=== PATIENT | male | born 1960 | race Caucasian/White ===

== ENCOUNTER 2018-10-25 21:46 | Emergency (ER) | payer MEDICAID ==
[2018-10-25] MEDS ORDERED: NORMAL SALINE 1000 ML 1,000 ML with POTASSIUM CHLORIDE 20 MEQ, MAGNESIUM SULFATE 8 MEQ,... IV PRN ×5 (23:09)
[2018-10-25 23:18] LABS: ABSOLUTE BASOPHILS # (AUTO) 0.1 10^3/uL (0.0-0.2); ABSOLUTE LYMPHOCYTES (AUTO) 2.2 10^3/uL (0.5-4.7); ABSOLUTE MONOCYTES (AUTO) 0.5 10^3/uL (0.1-1.4); ABSOLUTE NEUT (AUTO) 2.9 10^3/uL (1.7-8.2); BASOPHILS % (AUTO) 1.3 % (0-2); EOSINOPHILS % (AUTO) 0.8 % (0-6); HEMATOCRIT 50.4 % (37.9-51.0); HEMOGLOBIN 17.6 g/dL (13.5-17.0); LYMPHOCYTES % (AUTO) 38.9 % (13-45); MEAN CORPUSCULAR HEMOGLOBIN 31.8 pg (27.0-33.4); MEAN CORPUSCULAR HGB CONC 34.9 g/dL (32.0-36.0); MEAN CORPUSCULAR VOLUME 91 fl (80-97); MONOCYTES % (AUTO) 8.1 % (3-13); PLATELET COUNT 318 10^3/uL (150-450); RED BLOOD COUNT 5.51 10^6/uL (4.35-5.55); RED CELL DISTRIBUTION WIDTH 13.8 % (11.5-14.0); SEGMENTED NEUTROPHILS % (AUTO) 50.9 % (42-78); TOTAL CELLS COUNTED % (AUTO) 100 %; WHITE BLOOD COUNT 5.7 10^3/uL (4.0-10.5)
[2018-10-25 23:38] LABS: APPEARANCE,URINE CLEAR; BILIRUBIN,URINE NEGATIVE (NEGATIVE); COLOR,URINE YELLOW; GLUCOSE, URINE NEGATIVE (NEGATIVE); KETONES,URINE NEGATIVE (NEGATIVE); LEUKOCYTE ESTERASE,URINE NEGATIVE (NEGATIVE); NITRITE,URINE NEGATIVE (NEGATIVE); PROTEIN,URINE 100 mg/dL (NEGATIVE); URINE SPECIFIC GRAVITY 1.009; UROBILINOGEN,URINE NEGATIVE mg/dL (<2.0)
[2018-10-25 23:51] LABS: URINE AMPHETAMINES SCREEN NEGATIVE; URINE BARBITURATES SCREEN NEGATIVE; URINE BENZODIAZEPINES SCREEN NEGATIVE; URINE COCAINE SCREEN NEGATIVE; URINE MARIJUANA (THC) SCREEN UNCONFIRMED POSITIVE; URINE METHADONE SCREEN NEGATIVE; URINE PHENCYCLIDINE SCREEN NEGATIVE
[2018-10-26 00:11] LABS: ALANINE AMINOTRANSFERASE 65 U/L (21-72); ALBUMIN 5.1 g/dL (3.5-5.0); ALKALINE PHOSPHATASE 90 U/L (38-126); ANION GAP 15 (5-19); ASPARTATE AMINO TRANSFERASE 62 U/L (17-59); BILIRUBIN,DIRECT 0.1 mg/dL (0.0-0.4); BILIRUBIN,TOTAL 0.4 mg/dL (0.2-1.3); BLOOD UREA NITROGEN 7 mg/dL (7-20); CALCIUM 9.4 mg/dL (8.4-10.2); CARBON DIOXIDE 25 mmol/L (22-30); CHLORIDE 100 mmol/L (98-107); GLUCOSE 133 mg/dL (75-110); POTASSIUM 3.8 mmol/L (3.6-5.0); SODIUM 139.5 mmol/L (137-145)
[2018-10-26 00:17] LABS: ACETAMINOPHEN < 10 ug/mL (10-30); SALICYLATE < 1.0 mg/dL (2.0-20.0)
[2018-10-26 00:22] LABS: ALCOHOL 349 mg/dL (NONE DETECTED)
[2018-10-26] MEDS ORDERED: FOLIC ACID INJ 5 MG/1 ML 10 ML VIAL IV ONE (01:00)
[2018-10-26] MEDS ORDERED: THIAMINE HCL IV ONE ×2 (01:00)
[2018-10-26] MEDS ORDERED: NORMAL SALINE IV ONE ×2 (01:00)
[2018-10-26] MEDS ORDERED: THIAMINE HCL 100 MG TABLET PO ONE (01:20)
[2018-10-26] MEDS ORDERED: NORMAL SALINE 1000 ML 1,000 ML IV PRN (01:21)
--- NOTE | 2018-10-26 04:30 | ER Document Report ---
Addendum entered and electronically signed by GREG FIORE DO 10/26/18 11:56: Discharge - Discharge Clinical Impression: Suicidal ideation, Alcohol abuse Alcohol intoxication Qualifiers: Complication of substance-induced condition: uncomplicated Qualified Code(s): F10.920 - Alcohol use, unspecified with intoxication, uncomplicated Alcohol withdrawal Qualifiers: Complication of substance-induced condition: uncomplicated Qualified Code(s): F10.230 - Alcohol dependence with withdrawal, uncomplicated Condition: Stable Disposition: HOME, SELF-CARE Additional Instructions: You have been evaluated both medical and behavioral health teams have been deemed appropriate for discharge. You have been provided resources of local providers including mobile crisis contact information and detox facilities. I have prescribed you medication to treat your alcohol withdrawal. If it is not controlling your withdrawal symptoms please return to the emergency department. ACUTE ALCOHOL INTOXICATION and ALCOHOL ABUSE: Your evaluation revealed very high levels of alcohol. You can from drinking a large amount of alcohol rapidly! Further, there's the risk of falls, traffic accidents, and fights. A high portion (about 50 percent) of the serious injuries seen in hospital emergency rooms are caused by alcohol. Alcohol overdosage is usually due to an underlying emotional or psychiatric problem. You may benefit from counselling. If "binge" drinking is an ongoing problem for you, or if you drink ANY AMOUNT of alcohol EVERY day, you most likely have a tendency to alcoholism. You should avoid alcohol totally. We can refer you for treatment. Persons with alcohol problems are often also prone to other addictions -- you should discuss any use of medications or drugs with the doctor. You should be watched at home for the next several hours by someone who has not been drinking. Get extra fluids for the next 24 hours. Call the doctor if there is repeated vomiting, increasing headache, decreasing level of alertness, or any other worsening. CHRONIC ALCOHOLISM and ALCOHOL ABUSE: Your evaluation reveals evidence of chronic alcoholism, an addiction to alcohol. The tendency to alcoholism may be inherited. Chronic use of alcohol weakens muscles, causes fatty deposits in the liver, damages the stomach, makes you more prone to infections, and can cause defects in unborn children. In the long run, brain atrophy and cirrhosis of the liver result. You are also at greater risk for certain types of cancer, such as cancer of the mouth, throat, stomach, and liver. Counselling services are available to help you. In-hospital treatment programs often help. Support groups such as Alcoholics Anonymous can be very useful in beating this addiction. Your physician can make a referral for you. As alcoholics often are prone to other addictions, you should discuss your use of any other medications with the doctor. ALCOHOL WITHDRAWAL: Your symptoms are caused by alcohol withdrawal. After a period of frequent drinking, the brain and body are changed by the alcohol. When you quit or reduce your drinking, the nervous system becomes unstable. Withdrawal symptoms can start a few hours after your last drink, but sometimes don't begin until a couple of days later. Symptoms can include shakiness, sweating, insomnia, nausea, vomiting, fearfulness, hallucinations, and seizures. In addition to the acute effects of alcohol withdrawal, we often have to deal with the medical effects of alcoholism. These problems often include dehydration, stomach irritation, intestinal bleeding, low blood sugar, liver disease, and pancreas inflammation. Treatment for alcohol withdrawal includes mild sedatives, vitamins, and fluids. You need to be with someone who can help if symptoms become severe. Many patients can withdraw at home. Admission to the hospital or a detox facility may be necessary if withdrawal symptoms are severe and uncontrollable. Abstaining from alcohol is the only effective long-term treatment. If you start drinking again, you will not be able to control yourself after the first drink. Treatment programs are available. In addition, many alcoholics benefit from Alcoholics Anonymous or other support groups available through your [facility] or [employer]. AL-ANON and ALA-TEEN are support groups for friends and family members of an alcoholic. Go to the emergency room if you develop persistent vomiting, severe abdominal pain, fever, shortness of breath, hallucinations, uncontrollable tremors, or seizures. FOLLOW-UP CARE: If you have been referred to a physician for follow-up care, call the [facility] office for an appointment as you were instructed or within the next two days. If you experience worsening or a significant change in your symptoms, notify the physician immediately or return to the Emergency Department at any time for re-evaluation. Prescriptions: Chlordiazepoxide HCl [Librium 25 mg Capsule] 1 cap PO ASDIR PRN #22 capsule PRN Reason: Ondansetron HCl [Zofran 4 mg Tablet] 1 - 2 tab PO Q4H PRN #10 tablet PRN Reason: Referrals: [facility] [Outside] - Follow up in 3-5 days [facility] [Outside] - Follow up as needed Addendum entered and electronically signed by YOSVANY ROSARIO LCSWA 10/26/18 11:07: Discharge - Discharge Clinical Impression: Suicidal ideation Alcohol intoxication Qualifiers: Complication of substance-induced condition: uncomplicated Qualified Code(s): F10.920 - Alcohol use, unspecified with intoxication, uncomplicated Condition: Stable Disposition: HOME, SELF-CARE Additional Instructions: You have been evaluated both medical and behavioral health teams have been deemed appropriate for discharge. You have been provided resources of local providers including mobile crisis contact information and detox facilities. ACUTE ALCOHOL INTOXICATION and ALCOHOL ABUSE: Your evaluation revealed very high levels of alcohol. You can from drinking a large amount of alcohol rapidly! Further, there's the risk of falls, traffic accidents, and fights. A high portion (about 50 percent) of the serious injuries seen in hospital emergency rooms are caused by alcohol. Alcohol overdosage is usually due to an underlying emotional or psychiatric problem. You may benefit from counselling. If "binge" drinking is an ongoing problem for you, or if you drink ANY AMOUNT of alcohol EVERY day, you most likely have a tendency to alcoholism. You should avoid alcohol totally. We can refer you for treatment. Persons with alcohol problems are often also prone to other addictions -- you should discuss any use of medications or drugs with the doctor. You should be watched at home for the next several hours by someone who has not been drinking. Get extra fluids for the next 24 hours. Call the doctor if there is repeated vomiting, increasing headache, decreasing level of alertness, or any other worsening. CHRONIC ALCOHOLISM and ALCOHOL ABUSE: Your evaluation reveals evidence of chronic alcoholism, an addiction to alcohol. The tendency to alcoholism may be inherited. Chronic use of alcohol weakens muscles, causes fatty deposits in the liver, damages the stomach, makes you more prone to infections, and can cause defects in unborn children. In the long run, brain atrophy and cirrhosis of the liver result. You are also at greater risk for certain types of cancer, such as cancer of the mouth, throat, stomach, and liver. Counselling services are available to help you. In-hospital treatment programs often help. Support groups such as Alcoholics Anonymous can be very useful in beating this addiction. Your physician can make a referral for you. As alcoholics often are prone to other addictions, you should discuss your use of any other medications with the doctor. ALCOHOL WITHDRAWAL: Your symptoms are caused by alcohol withdrawal. After a period of frequent drinking, the brain and body are changed by the alcohol. When you quit or reduce your drinking, the nervous system becomes unstable. Withdrawal symptoms can start a few hours after your last drink, but sometimes don't begin until a couple of days later. Symptoms can include shakiness, sweating, insomnia, nausea, vomiting, fearfulness, hallucinations, and seizures. In addition to the acute effects of alcohol withdrawal, we often have to deal with the medical effects of alcoholism. These problems often include dehydration, stomach irritation, intestinal bleeding, low blood sugar, liver disease, and pancreas inflammation. Treatment for alcohol withdrawal includes mild sedatives, vitamins, and fluids. You need to be with someone who can help if symptoms become severe. Many patients can withdraw at home. Admission to the hospital or a detox facility may be necessary if withdrawal symptoms are severe and uncontrollable. Abstaining from alcohol is the only effective long-term treatment. If you start drinking again, you will not be able to control yourself after the first drink. Treatment programs are available. In addition, many alcoholics benefit from Alcoholics Anonymous or other support groups available through your [facility] or [employer]. AL-ANON and ALA-TEEN are support groups for friends and family members of an alcoholic. Go to the emergency room if you develop persistent vomiting, severe abdominal pain, fever, shortness of breath, hallucinations, uncontrollable tremors, or seizures. FOLLOW-UP CARE: If you have been referred to a physician for follow-up care, call the [facility] office for an appointment as you were instructed or within the next two days. If you experience worsening or a significant change in your symptoms, notify the physician immediately or return to the Emergency Department at any time for re-evaluation. Referrals: [facility] [Outside] - Follow up as needed [facility] [Outside] - Follow up in 3-5 days Original Note: ED General - General Chief Complaint: ETOH Abuse Stated Complaint: BLOOD PRESSURE PROBLEM Time Seen by Provider: 10/25/18 22:51 - HPI Notes: Patient presents to the emergency department for evaluation. History is gathered from the patient and his elderly mother. Evidently the patient has bee n binge drinking for the last several days. He checked himself into a hotel is been drinking alcohol. His sister became worried about him. She picked him up. At that time he did make suicidal thoughts be known. I do not have any details about this. The patient will admit this to me. He did tell his mother that he was depressed because his ex- was getting remarried. He will not elaborate at any time in regards to this either. He admits to drinking heavily over the last several days, states he usually drinks once or twice a week. Denies any homicidal ideation. No visual or auditory hallucination. - Related Data Allergies/Adverse Reactions: No Known Allergies Allergy (Verified 10/25/18 22:02) Past Medical History - General Information source: Patient, Parent - Social History Smoking Status: Current Every Day Smoker Frequency of alcohol use: Heavy Drug Abuse: None Family History: Reviewed & Not Pertinent Patient has suicidal ideation: No Patient has homicidal ideation: No - Past Medical History Cardiac Medical History: Reports: Hx Hypertension Endocrine Medical History: Reports: Hx Diabetes Mellitus Type 2 Renal/ Medical History: Denies: Hx Peritoneal Dialysis Past Surgical History: Reports: Hx Cardiac Surgery - CABG Review of Systems - Review of Systems -: Yes ROS unobtainable due to patient's medical condition - Patient currently intoxicated, not being forthcoming with history Physical Exam - Vital signs Vitals: Temp Pulse Resp BP Pulse Ox 98 F 87 16 159/103 H 97 10/25/18 22:00 10/25/18 22:00 10/25/18 22:00 10/25/18 22:00 10/25/18 22:00 - Notes Notes: Mildly disheveled, smells of alcohol. No acute distress. Vital signs reviewed, please refer to chart. Patient is normocephalic, atraumatic. Pupils equal round, reactive to light. Neck is supple without meningismus. Heart is regular rate and rhythm. Lungs are clear to auscultation bilaterally. Abdomen is sof t, nontender, normoactive bowel sounds throughout. Extremities without cyanosis, clubbing, edema. Peripheral pulses are equal. Skin is warm and dry. Patient is awake, alert, neurological exam is nonfocal. Patient with diminished eye contact and mildly depressed affect. Course - Re-evaluation Re-evalutation: 10/26/18 04:27 Patient presents emergency department for evaluation. He is not being forthcoming with me, but family states that he is in fact suicidal. IVC orders placed. Patient is found to be significantly intoxicated. The remainder of his laboratory investigations were unremarkable. Once patient is more sober, he will be medically cleared for psychiatric evaluation. Continue to monitor. 10/26/18 04:30 10/26/18 05:50 Patient admits that he talked about suicidal ideation with family last night. He states he is not suicidal at this time. He does have a history of alcohol abuse. At this point I do not feel comfortable discharging without psychiatric evaluation. He is medically cleared at this time. Await psychiatric evaluation. - Vital Signs Vital signs: Temp Pulse Resp BP Pulse Ox 98 F 87 16 159/103 H 97 10/25/18 22:00 10/25/18 22:00 10/25/18 22:00 10/25/18 22:00 10/25/18 22:00 - Laboratory Result Diagrams: 10/25/18 22:40 10/25/18 23:40 Laboratory results interpreted by me: 10/25/18 10/25/18 10/25/18 22:40 23:19 23:40 Hgb 17.6 H Glucose 133 H AST 62 H Albumin 5.1 H Urine Protein 100 H Urine Blood SMALL H Salicylates < 1.0 L Acetaminophen < 10 L Serum Alcohol 349 H* - EKG Interpretation by Me Additional EKG results interpreted by me: 10/26/18 05:51 Sinus mechanism with a rate of 72 bpm. Incomplete right bundle branch block. Nonspecific ST changes, no acute changes concerning for acute infarction. No old studies for comparison. Discharge - Discharge Clinical Impression: Suicidal ideation, Alcohol intoxication Condition: Stable
[2018-10-26] MEDS ORDERED: KETOROLAC TROMETHAMINE INJ/PF 30 MG/1 ML SDV IV ONE (05:28)
[2018-10-26] MEDS ORDERED: ONDANSETRON HCL INJ/PF 4 MG/2 ML SDV IV ONE (05:29)
[2018-10-26] MEDS ORDERED: LORAZEPAM INJ 2 MG/1 ML VIAL IV ONE ×2 (05:53→11:14)
--- NOTE | 2018-10-26 08:06 | EKG REPORT ---
SEVERITY:- ABNORMAL ECG - SINUS RHYTHM PROBABLE LEFT ATRIAL ABNORMALITY INCOMPLETE RIGHT BUNDLE BRANCH BLOCK NONSPECIFIC T ABNORMALITIES, LATERAL LEADS BORDERLINE ST ELEVATION : Confirmed by: Vernon Dickey MD 26-Oct-2018 08:05:03
[2018-10-26] MEDS ORDERED: LORAZEPAM 1 MG TABLET PO ONE (09:20)
[2018-10-26 12:20] VITALS: BP 150/89
--- NOTE | 2018-10-28 06:16 | ER Document Report ---
Entered by BENJI GALVEZ SCRIBE 10/26/18 1055 Acting as scribe for:GREG FIORE DO ED General - General Chief Complaint: ETOH Abuse Stated Complaint: BLOOD PRESSURE PROBLEM Time Seen by Provider: 10/25/18 22:51 Primary Care Provider: [facility] [Outside] - Follow up in 3-5 days [facility] [Outside] - Follow up as needed Mode of Arrival: Ambulatory Information source: Patient Notes: Patient is a 58 year old male with a history of alcohol abuse presents to the emergency department complaining of alcohol withdrawal. Patient states he last consumed alcohol around 0300 this morning. He states "Im in a bad way... I don't want a drink, I need a drink". Patient states he has been drinking heavy for "a while" and reports drinking approximately .5 a pint daily. He further states "I have been drunk all week". He mentions he would like to stop consuming alcohol and further states "I do not want to ". Patient also complains of diaphoresis, a headache, nausea, decreased appetite, tingling sensations in fingertips and tremors. He denies vomiting, hallucinations, a history of alcohol seizures, medications for alcohol abuse or psychiatric help. - Related Data Allergies/Adverse Reactions: No Known Allergies Allergy (Verified 10/26/18 07:39) Past Medical History - General Information source: Patient - Social History Smoking Status: Current Every Day Smoker Frequency of alcohol use: Heavy Drug Abuse: None Family History: Reviewed & Not Pertinent Patient has suicidal ideation: No Patient has homicidal ideation: No - Past Medical History Cardiac Medical History: Reports: Hx Hypertension Endocrine Medical History: Reports: Hx Diabetes Mellitus Type 2 Past Surgical History: Reports: Hx Cardiac Surgery - CABG Review of Systems - Review of Systems Constitutional: No symptoms reported EENT: No symptoms reported Cardiovascular: No symptoms reported Respiratory: No symptoms reported Gastrointestinal: See HPI, Nausea Genitourinary: No symptoms reported Physical Exam - Vital signs Vitals: Temp Pulse Resp BP Pulse Ox 98 F 87 16 159/103 H 97 10/25/18 22:00 10/25/18 22:00 10/25/18 22:00 10/25/18 22:00 10/25/18 22:00 - Notes Notes: GENERAL: Alert, appears mildly anxious, diaphoretic, no active vomiting, interacts well. No acute distress. HEAD: Normocephalic, atraumatic. EYES: Pupils equal, round, and reactive to light. Extraocular movements intact. ENT: Oral mucosa moist, tongue midline. NECK: Full range of motion. Supple. Trachea midline. LUNGS: Diffuse expiratory wheezing. No respiratory distress. HEART: Regular rate and rhythm. No murmurs, gallops, or rubs. ABDOMEN: Soft, non-tender. Non-distended. Bowel sounds present in all 4 quadrants. No guarding, rigidity, or rebound. EXTREMITIES: Moves all 4 extremities spontaneously. Mild resting tremor. NEUROLOGICAL: Alert and oriented x3. Normal speech. PSYCH: Appears mildly anxious. SKIN: Warm, diaphoretic, normal turgor. No rashes or lesions noted. Course - Vital Signs Vital signs: Temp Pulse Resp BP Pulse Ox 98.4 F 103 H 20 127/91 H 96 10/26/18 09:17 10/26/18 09:17 10/26/18 09:17 10/26/18 09:17 10/26/18 09:17 - Laboratory Result Diagrams: 10/25/18 22:40 10/25/18 23:40 Laboratory results interpreted by me: 10/25/18 10/25/18 10/25/18 22:40 23:19 23:40 Hgb 17.6 H Glucose 133 H AST 62 H Albumin 5.1 H Urine Protein 100 H Urine Blood SMALL H Salicylates < 1.0 L Acetaminophen < 10 L Serum Alcohol 349 H* Discharge - Discharge Clinical Impression: Suicidal ideation, Alcohol intoxication Disposition: HOME, SELF-CARE I personally performed the services described in the documentation, reviewed and edited the documentation which was dictated to the scribe in my presence, and it accurately records my words and actions.
== END 2018-10-26 12:30 | disposition home or self-care (01) ==
LOC: ER 21:46
DX: F10.230 Alcohol dependence with withdrawal, uncomplicated (principal); F10.220 Alcohol dependence with intoxication, uncomplicated; R45.851 Suicidal ideations; F17.200 Nicotine dependence, unspecified, uncomplicated; I10 Essential (primary) hypertension; E11.9 Type 2 diabetes mellitus without complications; I45.10 Unspecified right bundle-branch block; Z95.1 Presence of aortocoronary bypass graft
CPT/HCPCS: 93005; 36415; 80307 ×4; 85025; 80053; 81001; 93010; J3490 ×2; J1885; J2060; J2405; J7030

== ENCOUNTER 2019-04-20 09:24 | Emergency (ER) | payer MEDICAID, OTHER ==
[2019-04-20 09:29] VITALS: BP 174/97
[2019-04-20] MEDS ORDERED: LIDOCAINE 2% VISCOUS SOLN 20 ML UDCUP PO ONE (09:39)
--- NOTE | 2019-04-20 09:46 | ER Document Report ---
ED ENT - General Chief Complaint: Sore Throat Stated Complaint: COUGH, SORE THROAT Time Seen by Provider: 04/20/19 09:33 TRAVEL OUTSIDE OF THE [place] IN LAST 30 DAYS: No - HPI Notes: 58-year-old male to the emergency department with complaints of sore throat that got significantly worse since last night. He states about 3 days ago he noticed that he had a little bit of slight cough with production of clear phlegm. He states he did not really pay attention to it because he really did not feel bad. He states however yesterday he started to notice that his throat became sore and scratchy. He said that he woke up in the middle the night and felt like his sore throat had gotten worse and had a lot of pain with swallowing. He states that he has been able to tolerate fluids without any difficulty. He has not had any fevers, chills, chest pain, shortness of breath, ear pain, headache, nasal congestion, sick contacts, nausea, vomiting, diarrhea. Patient is a smoker. - Related Data Allergies/Adverse Reactions: No Known Allergies Allergy (Verified 04/20/19 09:25) Past Medical History - General Information source: Patient - Social History Smoking Status: Current Every Day Smoker Frequency of alcohol use: Occasional Drug Abuse: None Family History: Reviewed & Not Pertinent Patient has suicidal ideation: No Patient has homicidal ideation: No - Past Medical History Cardiac Medical History: Reports: Hx Hypertension Endocrine Medical History: Reports: Hx Diabetes Mellitus Type 2 - "borderline" Renal/ Medical History: Denies: Hx Peritoneal Dialysis Past Surgical History: Reports: Hx Cardiac Surgery - CABG Review of Systems - Review of Systems Constitutional: denies: Chills, Fever EENT: See HPI, Throat pain, Other Cardiovascular: denies: Chest pain, Palpitations, Heart racing, Dyspnea, Syncope, Dizziness, Lightheaded Respiratory: Cough. denies: Short of breath Gastrointestinal: denies: Abdominal pain, Diarrhea, Nausea, Vomiting Musculoskeletal: No symptoms reported Skin: No symptoms reported Hematologic/Lymphatic: No symptoms reported Neurological/Psychological: No symptoms reported -: Yes All other systems reviewed and negative Physical Exam - Vital signs Vitals: Temp Pulse Resp BP Pulse Ox 97.9 F 75 20 174/97 H 97 04/20/19 09:28 04/20/19 09:28 04/20/19 09:28 04/20/19 09:28 04/20/19 09:28 Interpretation: Hypertensive Notes: Patient states he has not taken his high blood pressure medicine today - General General appearance: Appears well, Alert In distress: None - HEENT Head: Normocephalic, Atraumatic Eyes: Normal Pupils: PERRL Ears: Normal External canal: Normal Tympanic membrane: Normal Sinus: Normal Nasal: Normal Mouth/Lips: Normal. No: Angioedema Mucous membranes: Normal Pharynx: Erythema - There is mild erythema to the posterior oropharynx without exudate. Tonsillar is are not swollen. Patient is tolerating oral secretions without difficulty. He has no hot potato voice. He does not have ludwigs angina. Airway is grossly patent.. No: Exudate, Peritonsillar abscess, Post n niko drainage, Retropharyngeal abscess, Tonsillar hypertrophy, Uvular edema, Potential airway comprom. Neck: Normal, Supple. No: Lymphadenopathy, Meningismus - Respiratory Respiratory status: No respiratory distress Chest status: Nontender Breath sounds: Normal Chest palpation: Normal - Cardiovascular Rhythm: Regular Heart sounds: Normal auscultation Murmur: No - Neurological Neuro grossly intact: Yes Cognition: Normal Orientation: AAOx4 [place] Coma Scale Eye Opening: Spontaneous Joi Coma Scale Verbal: Oriented [place] Coma Scale Motor: Obeys Commands [place] Coma Scale Total: 15 Speech: Normal Motor strength normal: LUE, RUE, LLE, RLE Sensory: Normal - Psychological Associated symptoms: Normal affect, Normal mood - Skin Skin Temperature: Warm Skin Moisture: Dry Skin Color: Normal Course - Re-evaluation Re-evalutation: Impression: Viral pharyngitis, hypertension. Rapid strep was already performed prior to seeing patient. Will await results however likely this is viral. We will give patient viscous lidocaine to aid in his discomfort. Patient agrees with the plan. 04/20/19 10:05 Noted negative rapid strep. Will discharge patient home with symptomatic relief to include Tylenol and Chloraseptic [place]. Encouraged to eat soft foods and cool liquids. To push fluids and to return if any worsening symptoms such as drooling, inability to swallow, or any other complaints. Patient agrees with the plan. - Vital Signs Vital signs: Temp Pulse Resp BP Pulse Ox 97.9 F 75 20 174/97 H 97 04/20/19 09:28 04/20/19 09:28 04/20/19 09:28 04/20/19 09:28 04/20/19 09:28 Discharge - Discharge Clinical Impression: Sore throat (viral) Pharyngitis Qualifiers: Pharyngitis/tonsillitis etiology: unspecified etiology Qualified Code(s): J02.9 - Acute pharyngitis, unspecified Hypertension Qualifiers: Hypertension type: essential hypertension Qualified Code(s): I10 - Essential (primary) hypertension Condition: Stable Disposition: HOME, SELF-CARE Instructions: Sore Throat ([facility]), Viral Syndrome ([facility]) Additional Instructions: PUSH FLUIDS. TAKE MEDICINES PRESCRIBED. FOLLOW UP WITH YOUR PRIMARY CARE PHYSICIAN IN THE NEXT WEEK. REST. Prescriptions: Phenol/Glycerin [Chloraseptic Max [place]] 2 spray MM PRN PRN #1 bottle PRN Reason: Acetaminophen [Tylenol Extra Strength 500 mg Tablet] 1 tab PO Q6H PRN #20 tab PRN Reason: Referrals: [facility] [Provider Group] - Follow up in 1 week
== END 2019-04-20 10:26 | disposition home or self-care (01) ==
LOC: ER 09:24
DX: J02.9 Acute pharyngitis, unspecified (principal); R05 Cough; F17.200 Nicotine dependence, unspecified, uncomplicated; I10 Essential (primary) hypertension; E11.9 Type 2 diabetes mellitus without complications; Z95.1 Presence of aortocoronary bypass graft
CPT/HCPCS: 99282; 87070; 87880; J3490

== ENCOUNTER 2019-04-23 16:47 | Emergency (ER) | payer MEDICAID ==
[2019-04-23 17:00] VITALS: BP 169/94
--- NOTE | 2019-04-23 17:28 | ER Document Report ---
ED Medical Screen (RME) - General Chief Complaint: Sore Throat Stated Complaint: SORE THROAT Time Seen by Provider: 04/23/19 17:14 Mode of Arrival: Ambulatory Information source: Patient Notes: Patient presents complaining of sore throat for the past week with pain to the anterior neck area. Patient was here last week and was seen for this complaint and had negative strep and throat culture performed at that time. I have greeted and performed a rapid initial assessment of this patient. A comprehensive ED assessment and evaluation of the patient, analysis of test results and completion of the medical decision making process will be conducted by additional ED providers. TRAVEL OUTSIDE OF THE [place] IN LAST 30 DAYS: No - Related Data Allergies/Adverse Reactions: No Known Allergies Allergy (Verified 04/23/19 16:47) Past Medical History - Past Medical History Cardiac Medical History: Reports: Hx Hypertension Endocrine Medical History: Reports: Hx Diabetes Mellitus Type 2 - "borderline" Renal/ Medical History: Denies: Hx Peritoneal Dialysis Past Surgical History: Reports: Hx Cardiac Surgery - CABG Physical Exam - Vital signs Vitals: Temp Pulse Resp BP Pulse Ox 97.9 F 78 18 169/94 H 98 04/23/19 16:58 04/23/19 16:58 04/23/19 16:58 04/23/19 16:58 04/23/19 16:58 - General Notes: Anterior neck tenderness, posterior pharynx mildly erythematous, no potential airway compromise Course - Vital Signs Vital signs: Temp Pulse Resp BP Pulse Ox 97.9 F 78 18 169/94 H 98 04/23/19 16:58 04/23/19 16:58 04/23/19 16:58 04/23/19 16:58 04/23/19 16:58
[2019-04-23 19:17] LABS: FREE T3 4.18 pg/mL (2.77-5.27); FREE T4 (FREE THYROXINE) 0.99 ng/dL (0.78-2.19)
[2019-04-23 19:31] LABS: THYROID STIMULATING HORMONE 3.45 uIU/mL (0.47-4.68)
--- NOTE | 2019-04-23 19:34 | RADIOLOGY REPORT (SQ) ---
EXAM DESCRIPTION: U/S THYROID/SFT TISS HD NECK COMPLETED DATE/TIME: 04/23/2019 7:15 pm REASON FOR STUDY: anterior neck pain COMPARISON: None. TECHNIQUE: Dynamic and static peraza-scale images acquired of the thyroid gland. Selected additional c olor/power Doppler images recorded. All images stored to PACS. LIMITATIONS: None. FINDINGS: RIGHT LOBE: Normal size, 4.9 x 1 x 1.1 cm. Homogeneous echotexture. No cystic or solid m asses. LEFT LOBE: Normal size, 4.7 x 1.1 x 1.6 cm. Homogeneous echotexture. No cystic or solid masses. ISTHMUS: Normal size, 3 mm. Homogeneous echotexture. No cystic or solid masses. OTHER: There is a 10 mm lymph node in the anterolateral right side of the neck. IMPRESSION: Lymph node. Normal thyroid gland. TECHNICAL DOCUMENTATION: JOB ID: [id number] [employer]- All Rights Reserved Reading location - IP/workstation name: [email or web address]
[2019-04-23 23:24] LABS: ABSOLUTE BASOPHILS # (AUTO) 0.1 10^3/uL (0.0-0.2); ABSOLUTE EOSINOPHILS # (AUTO) 0.2 10^3/uL (0.0-0.6); ABSOLUTE LYMPHOCYTES (AUTO) 1.5 10^3/uL (0.5-4.7); ABSOLUTE MONOCYTES (AUTO) 0.9 10^3/uL (0.1-1.4); ABSOLUTE NEUT (AUTO) 4.9 10^3/uL (1.7-8.2); BASOPHILS % (AUTO) 1.2 % (0-2); EOSINOPHILS % (AUTO) 2.8 % (0-6); HEMATOCRIT 49.2 % (37.9-51.0); HEMOGLOBIN 16.9 g/dL (13.5-17.0); LYMPHOCYTES % (AUTO) 19.4 % (13-45); MEAN CORPUSCULAR HEMOGLOBIN 31.8 pg (27.0-33.4); MEAN CORPUSCULAR HGB CONC 34.4 g/dL (32.0-36.0); MEAN CORPUSCULAR VOLUME 93 fl (80-97); MONOCYTES % (AUTO) 11.4 % (3-13); PLATELET COUNT 276 10^3/uL (150-450); RED BLOOD COUNT 5.32 10^6/uL (4.35-5.55); RED CELL DISTRIBUTION WIDTH 13.1 % (11.5-14.0); SEGMENTED NEUTROPHILS % (AUTO) 65.2 % (42-78); TOTAL CELLS COUNTED % (AUTO) 100 %; WHITE BLOOD COUNT 7.5 10^3/uL (4.0-10.5)
[2019-04-23] MEDS ORDERED: DEXAMETHASONE SOD PHOS INJ 10 MG/1 ML VIAL IM ONE (23:39)
--- NOTE | 2019-04-24 00:16 | ER Document Report ---
ED ENT - General Chief Complaint: Neck Pain >24hrs old Stated Complaint: SORE THROAT Time Seen by Provider: 04/23/19 17:14 Mode of Arrival: Ambulatory Notes: Patient is a 58-year-old male that comes to the emergency department for chief complaint of pain in his throat. He states every time he swallows he gets a lot of pain. He can point to the area on the right side which has some swelling and is worse with the pain as well. He denies inability swallow, shortness of breath, fever/chills, abdominal pain, vomiting, or any other symptoms at this time. He was seen previously and had a negative strep test, given Chloraseptic [place] and Tylenol. TRAVEL OUTSIDE OF THE [place] IN LAST 30 DAYS: No - Related Data Allergies/Adverse Reactions: No Known Allergies Allergy (Verified 04/23/19 16:47) Past Medical History - General Information source: Patient - Social History Smoking Status: Current Every Day Smoker Smoking Education Provided: Yes - <3 min Frequency of alcohol use: None Drug Abuse: None Lives with: Family Family History: Reviewed & Not Pertinent Patient has suicidal ideation: No Patient has homicidal ideation: No - Past Medical History Cardiac Medical History: Reports: Hx Hypertension Endocrine Medical History: Reports: Hx Diabetes Mellitus Type 2 - "borderline" Renal/ Medical History: Denies: Hx Peritoneal Dialysis Past Surgical History: Reports: Hx Cardiac Surgery - CABG - Immunizations Immunizations up to date: Yes Hx Diphtheria, Pertussis, Tetanus Vaccination: Yes Review of Systems - Review of Systems Constitutional: No symptoms reported EENT: See HPI Cardiovascular: No symptoms reported Respiratory: No symptoms reported Gastrointestinal: No symptoms reported Genitourinary: No symptoms reported Male Genitourinary: No symptoms reported Musculoskeletal: No symptoms reported Skin: No symptoms reported Hematologic/Lymphatic: No symptoms reported Neurological/Psychological: No symptoms reported Physical Exam - Vital signs Vitals: Temp Pulse Resp BP Pulse Ox 97.9 F 78 18 169/94 H 98 04/23/19 16:58 04/23/19 16:58 04/23/19 16:58 04/23/19 16:58 04/23/19 16:58 - Notes Notes: GENERAL: Alert, interacts well. No acute distress. HEAD: Normocephalic, atraumatic. EYES: Pupils equal, round, and reactive to light. Extraocular movements intact. ENT: Oral mucosa moist, tongue midline. Oropharynx unremarkable. Airway patent. Nares patent, no nasal septal hematoma, TM's intact. NECK: Full range of motion. Supple. Trachea midline. There is some right-sided anterior cervical adenopathy. No induration or fluctuance. LUNGS: Few scattered wheezes, occasional cough, coarse breath sounds. No tachypnea or labored breathing. HEART: Regular rate and rhythm. No murmur ABDOMEN: Soft, non-tender. Non-distended. Bowel sounds present in all 4 quadrants. GENITOURINARY: Deferred EXTREMITIES: Moves all 4 extremities spontaneously. No edema, normal radial and dorsalis pedis pulses bilaterally. No cyanosis. BACK: no cervical, thoracic, lumbar midline tenderness. No saddle anesthesia, normal distal neurovascular exam. Moves all extremities in full range of motion. NEUROLOGICAL: Alert and oriented x3. Normal speech. Cranial nerves II through XII grossly intact. PSYCH: Normal affect, normal mood. SKIN: Warm, dry, normal turgor. No rashes or lesions noted. Course - Re-evaluation Re-evalutation: Patient does have some pain with swallowing, he points to the right side of the neck, and this area that does appear to be adenopathy without submandibular swelling or abscess. Oropharyngeal exam is unremarkable. He is in no distress. Airway patent. No respiratory distress. He does have some scattered wheezes but he declines evaluation for this and states it is his baseline. Vital signs show hypertension but otherwise unremarkable. CBC unremarkable, thyroid studies, strep, mono, and thyroid ultrasound all reviewed from triage and show lymph node swelling but no other abnormalities. Discussed options with patient, he requests the dexamethasone after we discussed different options, throat culture pending. Discussed return precautions and follow-up. Patient states understanding and agreement. Stable at time of discharge. - Vital Signs Vital signs: Temp Pulse Resp BP Pulse Ox 97.9 F 78 18 169/94 H 98 04/23/19 16:58 04/23/19 16:58 04/23/19 16:58 04/23/19 16:58 04/23/19 16:58 - Laboratory Result Diagrams: 04/23/19 18:21 Discharge - Discharge Clinical Impression: Sore throat, Anterior cervical adenopathy Condition: Stable Disposition: HOME, SELF-CARE Additional Instructions: Your blood tests are normal. Your ultrasound shows an enlarged lymph node but no concerning findings otherwise. You have been treated for this. The dexamethasone you were given should help with your symptoms but might elevate your blood sugars over the next couple of days. This should resolve with time. Follow-up with primary care. Return if you worsen including difficulty swallowing, fever, or any other concerning or worsening symptoms.
== END 2019-04-24 00:30 | disposition home or self-care (01) ==
LOC: ER 16:47
DX: J02.9 Acute pharyngitis, unspecified (principal); R59.0 Localized enlarged lymph nodes; M54.2 Cervicalgia; F17.200 Nicotine dependence, unspecified, uncomplicated; I10 Essential (primary) hypertension; E11.9 Type 2 diabetes mellitus without complications; Z95.1 Presence of aortocoronary bypass graft
CPT/HCPCS: 36415; 87070; 84439; 87880; 84443; 85025; 86308; 84481; 76536; J1100

== ENCOUNTER 2020-07-19 09:33 | Emergency (ER) | payer MEDICAID ==
--- NOTE | 2020-07-19 10:29 | ER Document Report ---
ED General - General Chief Complaint: ETOH Abuse Stated Complaint: WEAKNESS/POSSIBLE ETOH Time Seen by Provider: 07/19/20 10:08 Notes: HPI: Patient is a 60-year-old male with a history of admitted alcohol abuse and medication noncompliance with a history of a CABG in the past presents today after he called his mother to call EMS secondary to alcohol intoxication and desiring help and assistance. Patient denies any history of withdrawal sei zures. Patient states he is intermittently taking a blood thinner for his CABG surgery. He states he did hit his right forehead yesterday. He states he did not vomit and did not lose consciousness. He denies weakness or numbness. Patient denies a history of withdrawal seizures. He denies pain to any location. ROS: See HPI All other review of systems reviewed and otherwise negative Reviewed vital signs and nursing note as charted by RN. PHYSICAL EXAM: CONSTITUTIONAL: Alert and polite but obviously intoxicated HEAD: Normocephalic; right forehead abrasion EYES: PERRL; no nystagmus, sclerae non-icteric ENT: Normal nose; no rhinorrhea; moist mucous membranes; pharynx without lesions noted NECK: Supple without meningismus; non-tender; no cervical lymphadenopathy, no masses CARD: Regular rate and rhythm; no murmurs; symmetric distal pulses RESP: Normal chest excursion without splinting or tachypnea; breath sounds clear and equal bilaterally; no wheezes, no rhonchi, no rales ABD/GI: Normal bowel sounds; non-distended; soft, non-tender; no palpable organomegaly or masses BACK: The back appears normal and is non-tender to palpation EXT: Normal ROM in all joints; non-tender to palpation; no edema SKIN: No acute lesions noted NEURO: CN 2-12 intact; 5/5 bilateral upper and lower extremity strength with sensation intact to light touch PSYCH: The patient's mood and manner are appropriate. Grooming and personal hygiene are appropriate. TRAVEL OUTSIDE OF THE [place] IN LAST 30 DAYS: No - Related Data Allergies/Adverse Reactions: No Known Allergies Allergy (Verified 04/23/19 16:47) Home Medications: non compliant Past Medical History - Social History Smoking Status: Current Every Day Smoker Chew tobacco use (# tins/day): No Frequency of alcohol use: Heavy Drug Abuse: None Family History: Reviewed & Not Pertinent Patient has homicidal ideation: No - Past Medical History Cardiac Medical History: Reports: Hx Hypertension Endocrine Medical History: Reports: Hx Diabetes Mellitus Type 2 - "borderline" Renal/ Medical History: Denies: Hx Peritoneal Dialysis Past Surgical History: Reports: Hx Cardiac Surgery - CABG - Immunizations Immunizations up to date: Yes Hx Diphtheria, Pertussis, Tetanus Vaccination: Yes Physical Exam - Vital signs Vitals: Resp Pulse Ox 20 98 07/19/20 09:59 07/19/20 09:59 Course - Re-evaluation Re-evalutation: 07/19/20 10:29 Given the above history and physical examination, I will obtain basic labs, attempt to obtain a CT scan of the head, and have case management/behavioral health talk to the patient about possible options. Patient is stating that he would like to perform outpatient therapy. He does not want to be transferred to an inpatient location. 07/19/20 10:35 EKG shows heart rate of 63, normal sinus rhythm, right bundle branch block, inverted T waves in leads I, 2, aVL, V4 through V6. Previous EKG from October 2018 shows a similar EKG with upright T waves in V4 07/19/20 11:19 Imaging and blood alcohol level as recorded. - Vital Signs Vital signs: Temp Pulse Resp BP Pulse Ox 98.9 F 83 14 126/80 H 97 07/19/20 15:14 07/19/20 15:15 07/19/20 15:15 07/19/20 15:15 07/19/20 15:15 - Laboratory Result Diagrams: 07/19/20 09:58 07/19/20 09:58 Laboratory results interpreted by me: 07/19/20 09:58 Sodium 148.2 H Serum Alcohol 391 H* Discharge - Discharge Clinical Impression: Alcohol intoxication Qualifiers: Complication of substance-induced condition: with unspecified complication Qualified Code(s): F10.929 - Alcohol use, unspecified with intoxication, unspecified Condition: Fair Disposition: PSYCH HOSP/UNIT
[2020-07-19 10:30] LABS: ABSOLUTE MONOCYTES (AUTO) 0.4 10^3/uL (0.1-1.4); ABSOLUTE NEUT (AUTO) 2.2 10^3/uL (1.7-8.2); BASOPHILS % (AUTO) 0.9 % (0-2); EOSINOPHILS % (AUTO) 0.6 % (0-6); HEMATOCRIT 48.3 % (37.9-51.0); HEMOGLOBIN 16.3 g/dL (13.5-17.0); MEAN CORPUSCULAR HEMOGLOBIN 31.5 pg (27.0-33.4); MEAN CORPUSCULAR HGB CONC 33.7 g/dL (32.0-36.0); MEAN CORPUSCULAR VOLUME 94 fl (80-97); MONOCYTES % (AUTO) 7.7 % (3-13); PLATELET COUNT 252 10^3/uL (150-450); RED BLOOD COUNT 5.17 10^6/uL (4.35-5.55); RED CELL DISTRIBUTION WIDTH 13.6 % (11.5-14.0); SEGMENTED NEUTROPHILS % (AUTO) 46.8 % (42-78); TOTAL CELLS COUNTED % (AUTO) 100 %; WHITE BLOOD COUNT 4.6 10^3/uL (4.0-10.5)
[2020-07-19 10:52] LABS: ALBUMIN 3.9 g/dL (3.5-5.0); ALKALINE PHOSPHATASE 92 U/L (38-126); ANION GAP 11 (5-19); ASPARTATE AMINO TRANSFERASE 59 U/L (17-59); BILIRUBIN,DIRECT 0.2 mg/dL (0.0-0.4); BILIRUBIN,TOTAL 0.5 mg/dL (0.2-1.3); BLOOD UREA NITROGEN 13 mg/dL (7-20); CALCIUM 8.5 mg/dL (8.4-10.2); CARBON DIOXIDE 30 mmol/L (22-30); CHLORIDE 107 mmol/L (98-107); GLUCOSE 101 mg/dL (75-110); POTASSIUM 4.1 mmol/L (3.6-5.0); TOTAL PROTEIN 6.9 g/dL (6.3-8.2)
--- NOTE | 2020-07-19 10:57 | RADIOLOGY REPORT (SQ) ---
EXAM DESCRIPTION: CT HEAD WITHOUT IMAGES COMPLETED DATE/TIME: 07/19/2020 10:44 am REASON FOR STUDY: 19; closed head injury COMPARISON: 2006. TECHNIQUE: Axial images acquired through the brain without intravenous contrast. Images reviewed wi th bone, brain and subdural windows. Additional sagittal and coronal reconstructions were generated. Images stored on PACS. All CT scanners at this facility use dose modulation, iterative reconstruction, and/or weight based d osing when appropriate to reduce radiation dose to as low as reasonably achievable (ALARA). [facility]: Dose Right [facility]: CareDose [facility]: Dose Right [facility]: Teradose 4D [facility]: Smart [employer] RADIATION DOSE: CT Rad equipment meets quality standard of care and radiation dose reduction techniq ues were employed. CTDIvol: 53.2 mGy. DLP: 1044 mGy-cm. mGy. LIMITATIONS: None. FINDINGS: VENTRICLES: Prominent. CEREBRUM: No masses. No hemorrhage. No midline shift. Areas of low density in the white matter mos t likely due to chronic micro-vascular ischemic change. No evidence for acute infarction. CEREBELLUM: No masses. No hemorrhage. No alteration of density. No evidence for acute infarction. EXTRAAXIAL SPACES: Mild age-related involutional change. No fluid collections. No masses. ORBITS AND GLOBE: No intra- or extraconal masses. Normal contour of globe without masses. CALVARIUM: No fracture. PARANASAL SINUSES: No fluid or mucosal thickening. SOFT TISSUES: No mass or hematoma. OTHER: No other significant finding. IMPRESSION: No acute findings. EVIDENCE OF ACUTE STROKE: NO. TECHNICAL DOCUMENTATION: JOB ID: [id number] Quality ID # [id number]: Final reports with documentation of one or more dose reduction techniques (e.g., Au tomated exposure control, adjustment of the mA and/or kV according to patient size, use of iterative reconstruction technique) 2010 [employer]- All Rights Reserved Reading location - IP/workstation name: [email or web address]
[2020-07-19] MEDS ORDERED: NORMAL SALINE 1000 ML 1,000 ML IV ONE (11:14)
[2020-07-19 11:18] LABS: ALCOHOL 391 mg/dL (NONE DETECTED)
[2020-07-19] MEDS ORDERED: LORAZEPAM 1 MG TABLET PO ONE ×2 (12:45→18:30)
[2020-07-19 18:15] VITALS: BP 169/109
[2020-07-19] MEDS ORDERED: LORAZEPAM INJ 2 MG/1 ML VIAL IV ONE (18:20)
--- NOTE | 2020-07-19 18:49 | EKG REPORT ---
SEVERITY:- ABNORMAL ECG - SINUS RHYTHM PROBABLE LEFT ATRIAL ABNORMALITY INCOMPLETE RIGHT BUNDLE BRANCH BLOCK INFERO-LATERL TWI-SUSPECT ISCHEMIA : Confirmed by: Joe Alvarez MD 19-Jul-2020 18:49:12
--- NOTE | 2020-07-19 19:23 | PSYCHOLOGICAL NOTE ---
Psych Note - Psych Note Date seen by psych provider: 07/19/20 Time seen by psych provider: 16:54 Psych Note: Reason for Consult: alcohol intoxication Consent permissions: [id number] Patient is a 60 year old male who was admitted to the ED voluntarily for alcohol abuse and intoxication. He denies suicidal ideation, plan, and intent. He reports drinking about 1 pint of Vodka a day for a couple of years. Patient reports he has been to rehab years ago and does not know why he started drinking again. Patient reports he has been drinking and not eating food. Patient reports he wants to get help for alcohol use and needs to be medically cleared to go to [place]. Patient was alert and oriented to self, person, place, time and situation. Mood was sad with congruent affect. He denies suicidal ideation, plan, and intent. Patient denies homicidal ideation, plan, and intent. Patient did not appear to be responding to internal stimuli as evidenced by fair eye contact and answering questions appropriately when addressed. Thought processes are linear and organ ized. Conversational speech was within normal limits for rate, tone and prosody. Intellectual abilities are estimated to be average. Insight and judgment were fair as evidenced by acknowledging he has an alcohol addiction and coming to the ED for assistance and impulse control was poor as evidenced by continued alcohol abuse. Patient engages appropriately. He demonstrates future forward goal williams ented thinking as he talks about going to [place] crisis center and asked questions regarding resources. Clinical Presentation: alcohol intoxication IVC Criteria per [place] GS 122C Dangerous to others Within the relevant past the individual No has inflicted or attempted to inflict or threatened to inflict serious bodily harm on another AND No that there is a reasonable probability that this conduct will be repeated. OR No has acted in such a way as to create a substantial risk of serious bodily harm to another AND No that there is a reasonable probability that this conduct will be repeated. OR No has engaged in extreme destruction of property AND NO that there is a reasonable probability that this conduct will be repeated. Previous episodes of dangerousness to others, when applicable, may be considered when determining reasonable probability of future dangerous conduct. Clear, cogent, and convincing evidence that an individual has committed a homicide in the relevant past is prima facie evidence of dangerousness to others. Dangerous to self Within the relevant past the individual has done any of the following: acted in such a way as to show ALL of the following: No The individual would be unable without care, supervision, and the continued assistance of others not otherwise available, to exercise self- control, judgment, and discretion in the conduct of the individual's daily responsibilities and social relations or to satisfy the individual's need for nourishment, personal or medical care, halfway, or self-protection and safety. AND No There is a reasonable probability of the individual suffering serious physical debilitation within the near future unless adequate treatment is given. A showing of behavior that is grossly irrational, of actions that the individual is unable to control, of behavior that is grossly inappropriate to the situation, or of other evidence of severely impaired insight and judgment shall create a prima facie inference that the individual is unable to care for himself or herself. OR No has attempted suicide or threatened suicide AND No that there is a reasonable probability of suicide unless adequate treatment is given OR No has mutilated himself or herself or attempted to mutilate himself or herself AND No that there is a reasonable probability of serious self-mutilation unless adequate treatment is given. NOTE: Previous episodes of dangerousness to self, when applicable, may be considered when determining reasonable probability of physical debilitation, suicide, or self-mutilation. Impression\plan: Patient is cleared from psychiatric services. He was admitted to the ED for alcohol intoxication. He denies suicidal and homicidal ideation, plan, and intent. States he likes himself too much. Patient reports drinking excessively, but acknowledges he has a problem and wants to become sober. Patient has set up an appointment at [facility] center and has scheduled his assessment for 2330 tonight. Upon discharge, patient states he is going to get a cab, go home, get clothes, and go back to [place] for his 2330 meeting. Patient mentioned wanting to become sober and get the substance use treatment and a resource list has been provided. Jorge has been highlighted on your referral sheet. You are also given a resource list for online resources for COVID shut down to include AA meetings and other addiction and substance use online meeting platforms. You have been given a community outpatient referral list to include phone numbers for [facility] and [facility] mobile crisis. Dr. Virk was consulted to care management of this patient; attending physicians in agreement with recommendations and disposition.
== END 2020-07-19 19:32 | disposition home or self-care (01) ==
LOC: ER 09:33
DX: F10.129 Alcohol abuse with intoxication, unspecified (principal); S00.81XA Abrasion of other part of head, initial encounter; W19.XXXA Unspecified fall, initial encounter; Z95.5 Presence of coronary angioplasty implant and graft; T50.906A Underdosing of unspecified drugs, medicaments and biological substances, initial encounter; Z91.14 Patient's other noncompliance with medication regimen; F17.200 Nicotine dependence, unspecified, uncomplicated; I10 Essential (primary) hypertension
CPT/HCPCS: 93005; 99285; 96360; 36415; 80307; 85025; 80053; 84484; 70450; 93010; J7030

== ENCOUNTER 2020-07-20 00:24 | Emergency (ER) | payer MEDICAID ==
--- NOTE | 2020-07-20 00:43 | ER Document Report ---
ED Medical Screen (RME) - General Chief Complaint: Blood Pressure Problem Stated Complaint: BLOOD PRESSURE ISSUES Time Seen by Provider: 07/20/20 00:37 Mode of Arrival: Ambulatory Information source: Patient Notes: 60-year-old male presented to ED for elevated blood pressure. He went to [facility] for detox and they told him his blood pressure was too high he had to get his blood pressure down before he could come back. He states once his blood pressure is down he is supposed to walk back over to [facility] for detox. Patient states he did not take his medications this morning. He is on Ranexa 500 mg once a day myocardiis 80 mg once a day and Plavix 75 mg. He took one of his medications at this time to try to get his blood pressure down. He had not taken them all day. Will be seen by another provider. He states he had about 1/5 of liquor this morning. He states that his usual alcohol per day. I have greeted and performed a rapid initial assessment of this patient. A comprehensive ED assessment and evaluation of the patient, analysis of test results and completion of medical decision making process will be conducted by an additional ED providers. TRAVEL OUTSIDE OF THE [place] IN LAST 30 DAYS: No - Related Data Allergies/Adverse Reactions: No Known Allergies Allergy (Verified 04/23/19 16:47) Past Medical History - Past Medical History Cardiac Medical History: Reports: Hx Hypertension Endocrine Medical History: Reports: Hx Diabetes Mellitus Type 2 - "borderline" Renal/ Medical History: Denies: Hx Peritoneal Dialysis Past Surgical History: Reports: Hx Cardiac Surgery - CABG - Immunizations Immunizations up to date: Yes Hx Diphtheria, Pertussis, Tetanus Vaccination: Yes Physical Exam - Vital signs Vitals: Temp Pulse Resp BP Pulse Ox 97.7 F 102 H 16 180/122 H 97 07/20/20 00:29 07/20/20 00:29 07/20/20 00:29 07/20/20 00:29 07/20/20 00:29 Course - Vital Signs Vital signs: Temp Pulse Resp BP Pulse Ox 97.7 F 102 H 16 173/122 H 97 07/20/20 00:29 07/20/20 00:29 07/20/20 00:29 07/20/20 00:32 07/20/20 00:29
[2020-07-20 01:22] LABS: ABSOLUTE BASOPHILS # (AUTO) 0.1 10^3/uL (0.0-0.2); ABSOLUTE LYMPHOCYTES (AUTO) 1.4 10^3/uL (0.5-4.7); ABSOLUTE MONOCYTES (AUTO) 0.5 10^3/uL (0.1-1.4); ABSOLUTE NEUT (AUTO) 6.5 10^3/uL (1.7-8.2); BASOPHILS % (AUTO) 1.2 % (0-2); EOSINOPHILS % (AUTO) 0.3 % (0-6); HEMATOCRIT 45.3 % (37.9-51.0); HEMOGLOBIN 15.6 g/dL (13.5-17.0); LYMPHOCYTES % (AUTO) 16.8 % (13-45); MEAN CORPUSCULAR HEMOGLOBIN 31.7 pg (27.0-33.4); MEAN CORPUSCULAR HGB CONC 34.5 g/dL (32.0-36.0); MEAN CORPUSCULAR VOLUME 92 fl (80-97); MONOCYTES % (AUTO) 5.5 % (3-13); PLATELET COUNT 210 10^3/uL (150-450); RED BLOOD COUNT 4.93 10^6/uL (4.35-5.55); RED CELL DISTRIBUTION WIDTH 13.4 % (11.5-14.0); SEGMENTED NEUTROPHILS % (AUTO) 76.2 % (42-78); TOTAL CELLS COUNTED % (AUTO) 100 %; WHITE BLOOD COUNT 8.5 10^3/uL (4.0-10.5)
[2020-07-20 01:37] LABS: APPEARANCE,URINE CLEAR; BILIRUBIN,URINE NEGATIVE (NEGATIVE); COLOR,URINE STRAW; GLUCOSE, URINE NEGATIVE (NEGATIVE); KETONES,URINE NEGATIVE (NEGATIVE); LEUKOCYTE ESTERASE,URINE NEGATIVE (NEGATIVE); NITRITE,URINE NEGATIVE (NEGATIVE); PROTEIN,URINE 30 mg/dL (NEGATIVE); URINE SPECIFIC GRAVITY 1.013; UROBILINOGEN,URINE NEGATIVE mg/dL (<2.0)
[2020-07-20 01:39] LABS: ALBUMIN 4.4 g/dL (3.5-5.0); ALKALINE PHOSPHATASE 100 U/L (38-126); ANION GAP 9 (5-19); ASPARTATE AMINO TRANSFERASE 54 U/L (17-59); BILIRUBIN,DIRECT 0.1 mg/dL (0.0-0.4); BILIRUBIN,TOTAL 0.7 mg/dL (0.2-1.3); BLOOD UREA NITROGEN 11 mg/dL (7-20); CALCIUM 9.1 mg/dL (8.4-10.2); CARBON DIOXIDE 29 mmol/L (22-30); CHLORIDE 100 mmol/L (98-107); GLUCOSE 133 mg/dL (75-110); POTASSIUM 3.7 mmol/L (3.6-5.0); TOTAL PROTEIN 7.4 g/dL (6.3-8.2)
[2020-07-20 01:41] LABS: ACETAMINOPHEN < 10 ug/mL (10-30); ALCOHOL < 10 mg/dL (NONE DETECTED); SALICYLATE < 1.0 mg/dL (2.0-20.0)
[2020-07-20 01:49] LABS: URINE AMPHETAMINES SCREEN NEGATIVE; URINE BARBITURATES SCREEN NEGATIVE; URINE BENZODIAZEPINES SCREEN NEGATIVE; URINE COCAINE SCREEN NEGATIVE; URINE METHADONE SCREEN NEGATIVE; URINE PHENCYCLIDINE SCREEN NEGATIVE
[2020-07-20 01:52] LABS: URINE MARIJUANA (THC) SCREEN UNCONFIRMED POSITIVE
[2020-07-20] MEDS ORDERED: CLONIDINE HCL 0.1 MG TABLET PO ONE ×3 (03:12→04:45)
[2020-07-20] MEDS ORDERED: DIAZEPAM 5 MG TABLET PO ONE (03:12)
--- NOTE | 2020-07-20 03:13 | ER Document Report ---
ED General - General Chief Complaint: Blood Pressure Problem Stated Complaint: BLOOD PRESSURE ISSUES Time Seen by Provider: 07/20/20 00:37 Primary Care Provider: MILES TALLEY MD [HONORARY] - Follow up as needed Mode of Arrival: Ambulatory TRAVEL OUTSIDE OF THE [place] IN LAST 30 DAYS: No - HPI Context: Time: 300 Chief Complaint: [Elevated blood pressure] [This is a 60-year-old male with a history of alcohol abuse who presented over at [facility] to be admitted for alcohol detox. Patient states when he was being assessed over at [facility] he was told his blood pressure was too high for him to be excepted. Patient was instructed that he needed to get his blood pressure down before he could be accepted to [facility]. He was directed to the ED for further evalu ation and treatment. Patient states that he usually has 1/5 of liquor daily. Patient states his last drink was yesterday morning. ] History obtained from [patient] Symptoms began:[Elevated blood pressure reading obtained at [facility] just prior to presentation here] Onset: [Unknown] Timing: [Unknown] Quality: [Patient denies pain] Intensity: [0 out of 5] Location: [Patient denies headache, chest pain, abdominal pain] Radiation: [Patient denies] [The pain does not migrate to a new location.] Aggravating factors: Alcohol withdrawal Relieving factors: [none] [Denies] SOB [Denies] nausea [Denies] vomiting [Denies] sweats [Denies] fever [Denies] cough [Denies] calf or leg swelling or pain - Related Data Allergies/Adverse Reactions: No Known Allergies Allergy (Verified 04/23/19 16:47) Home Medications: renexa 500 mg daily. micardis 80 mg qday. plavix 75 mg qday Past Medical History - General Information source: Patient - Social History Smoking Status: Current Every Day Smoker Frequency of alcohol use: fifth of liquor daily x1 yr Drug Abuse: None Family History: Reviewed & Not Pertinent - Past Medical History Cardiac Medical History: Reports: Hx Hypertension Endocrine Medical History: Reports: Hx Diabetes Mellitus Type 2 - "borderline" Renal/ Medical History: Denies: Hx Peritoneal Dialysis Past Surgical History: Reports: Hx Cardiac Surgery - CABG - Immunizations Immunizations up to date: Yes Hx Diphtheria, Pertussis, Tetanus Vaccination: Yes Review of Systems - Review of Systems Notes: Review of systems as below unless otherwise stated in HPI. CONSTITUTIONAL [No] fever, [No] chills. EYES [No] eye pain. ENT [No] URI symptoms, [No] sore throat, [No] ear pain. CARDIOVASCULAR [No] chest pain, [No] palpitations, [No] edema. Positive high blood pressure RESPIRATORY [No] Cough, [No] SOB, [No] wheezing. GASTROINTESTINAL [No] abdominal pain, [No] nausea, [No] Diarrhea, [No] Vomiting, [No] constipation, [No] melena, [No] rectal bleeding. GENITOURINARY [No] dysuria, [No] urinary frequency, [No] hematuria, [No] urinary urgency MUSCULOSKELETAL [No] Back pain. SKIN [No] Rash. NEUROLOGIC [No] Headache, [No] recent seizures, [No] paralysis,[No] parathesias. ENDOCRINE [No] polyuria. HEMO/LYMPATIC [No] easy brusing PSYCHIATRIC [No] depression. Physical Exam - Vital signs Vitals: Temp Pulse Resp BP Pulse Ox 97.7 F 102 H 16 180/122 H 97 07/20/20 00:29 07/20/20 00:29 07/20/20 00:29 07/20/20 00:29 07/20/20 00:29 - Notes Notes: CONSTITUTIONAL [Vital signs reviewed, Patient appears disheveled, does not appear to be in any acute distress, Alert and oriented X 3. HEAD . Normocephalic. Patient has a small abrasion on his forehead that he states was a result of a fall yesterday. Examination of this area reveals no deformity, step-off or crepitus] EYES [Eyes are normal to inspection, No discharge from eyes, Extraocular muscles intact, Sclera are normal, Conjunctiva are normal.] ENT [External ears normal to inspection, Nose examination normal, Mouth normal to inspection.] NECK [Normal ROM, No jugular venous distention, No meningeal signs, ] RESPIRATORY CHEST [Chest is nontender, Breath sounds normal, No respiratory distress.] CARDIOVASCULAR [RRR, No murmurs, Normal S1 S2, No rub, No gallop.] ABDOMEN [Abdomen is nontender, No pulsatile masses, No other masses, Bowel sounds normal, No distension, No peritoneal signs, No hernias.] BACK [There is no CVA Tenderness, There is no tenderness to palpation, Normal inspection.] UPPER EXTREMITY [Inspection normal, No cyanosis, No clubbing, No edema, LOWER EXTREMITY [Inspection normal, No cyanosis, No clubbing, No edema, No calf tenderness, NEURO [No focal motor deficits, No focal sensory deficits, Speech normal.] SKIN [Skin is warm, Skin is dry, Skin is normal color.] PSYCHIATRIC [Normal affect. ] Course - Re-evaluation Re-evalutation: 07/20/20 06:38 Patient's blood pressure is down to 120/85. Patient has been accepted to [facility]. - Vital Signs Vital signs: Temp Pulse Resp BP Pulse Ox 97.7 F 102 H 16 120/85 97 07/20/20 00:29 07/20/20 00:29 07/20/20 00:29 07/20/20 06:30 07/20/20 00:29 - Laboratory Result Diagrams: 07/20/20 01:00 07/20/20 01:00 Laboratory results interpreted by me: 07/20/20 07/20/20 01:00 01:00 Glucose 133 H Urine Protein 30 H Urine Blood SMALL H Salicylates < 1.0 L Acetaminophen < 10 L - EKG Interpretation by Me Additional EKG results interpreted by me: 07/20/20 04:07 EKG obtained on 07/20/2020 at 0119 hrs. was interpreted by this MD. Findings: Normal sinus rhythm, rate 81, normal axis, KS interval appears to be within normal limits, P waves preceding QRS complexes right bundle branch block is present, QTC is 493, there are no obvious patterns of ST segment elevation, depression or reciprocal changes seen to suggest acute myocardial infarction or ischemia. When compared with prior EKG from 07/19/2020 the morphology of the two EKGs is grossly the same. Impression: Normal sinus rhythm with right bundle branch block and nonspecific ST segments. Discharge - Discharge Clinical Impression: Chronic alcohol abuse, Elevated blood pressure reading Condition: Stable Disposition: OTHER Additional Instructions: Go directly to [facility] upon discharge. Return to the Emergency Department without delay if any worse. HOME CARE INSTRUCTIONS & INFORMATION: Thank you for choosing us for your medical needs. We hope you're satisfied with the care you received. After you leave, you must properly care for your problem and, at the same time, observe its progress. Any condition can change. Some illnesses can change rapidly over hours or days. If your condition worsens, return to the Emergency Department or see your physician promptly. ABOUT YOUR X-RAYS AND EKG'S: If you had an EKG or X-rays taken, they have been read by the Emergency Physician. The X-rays and EKG's will also be read by a R adiologist or [employer] Operator within 24 hours. If discrepancies are noted, you will be notified by telephone. Please be certain the ED has a correct telephone number & address where you can be reached. Also, realize that some fractures or abnormalities do not show up on initial X-rays. If your symptoms continue, see your physician. ABOUT YOUR LABORATORY TEST: If you had laboratory tests, the results have been reviewed by the Emergency Physician. Some test results (for example cultures) may not be available for several days. You will be contacted if any test result shows you need additional treatment. Please be certain the ED has a correct telephone number and address where you can be reached. ABOUT YOUR MEDICATIONS: You will receive instructions on how to take your medicine on the prescription label you receive. Additional information may be provided by the Pharmacy. If you have questions afterwards, call the ED for clarification or further instructions. Some prescribed medications may cause drowsiness. Do not perform tasks such as driving a car or operating machinery without consulting your Pharmacist. If you feel you need a refill of pain medication, your condition will need re-evaluation. Please do not call for a refill of any medication. ABOUT YOUR SIGNATURE: Signature of this document acknowledges to followin. Understanding that you received emergency treatment and that you may be released before al medical problems are known or treated. Please be certain the ED has a correct phone number & address where you can be reached. 2. Acknowledgement that you will arrange for follow-up care as recommended. 3. Authorization for the Emergency Physician to provide information to your follow-up Physician in order to maximize your care. AT ANY TIME, IF YOUR SYMPTOMS CHANGE SIGNIFICANTLY OR WORSEN OR YOU DEVELOP NEW SYMPTOMS, RETURN TO THE EMERGENCY DEPARTMENT IMMEDIATELY FOR RE-EVALUATION. OUR GOAL IS TO PROVIDE EXCELLENT MEDICAL CARE! WE HOPE THAT WE HAVE MET YOUR EXPECTATIONS DURING YOUR EMERGENCY DEPARTMENT VISIT AND THAT YOU FEEL YOU HAVE RECEIVED EXCELLENT CARE! Referrals: MILES TALLEY MD [HONORARY] - Follow up as needed
[2020-07-20] MEDS ORDERED: KETOROLAC TROMETHAMINE INJ/PF 30 MG/1 ML SDV IV ONE (05:02)
[2020-07-20 06:49] VITALS: BP 128/75
--- NOTE | 2020-07-20 08:31 | EKG REPORT ---
SEVERITY:- ABNORMAL ECG - SINUS RHYTHM PROBABLE LEFT ATRIAL ABNORMALITY INCOMPLETE RIGHT BUNDLE BRANCH BLOCK NONSPECIFIC T ABNORMALITIES, LATERAL LEADS BORDERLINE PROLONGED QT INTERVAL : Confirmed by: Joe Alvarez MD 20-Jul-2020 08:30:55
== END 2020-07-20 06:49 | disposition other institution (70) ==
LOC: ER 00:24
DX: F10.10 Alcohol abuse, uncomplicated (principal); I10 Essential (primary) hypertension; Z95.1 Presence of aortocoronary bypass graft; Z79.01 Long term (current) use of anticoagulants
CPT/HCPCS: 93005; 99284; 36415; 80307 ×4; 85025; 80053; 81001; 93010; J3490 ×2

== ENCOUNTER 2020-08-02 00:12 | Emergency (ER) | payer MEDICAID, OTHER ==
[2020-08-02 03:22] LABS: ABSOLUTE BASOPHILS # (AUTO) 0.1 10^3/uL (0.0-0.2); ABSOLUTE EOSINOPHILS # (AUTO) 0.2 10^3/uL (0.0-0.6); ABSOLUTE LYMPHOCYTES (AUTO) 2.5 10^3/uL (0.5-4.7); ABSOLUTE MONOCYTES (AUTO) 0.6 10^3/uL (0.1-1.4); ABSOLUTE NEUT (AUTO) 5.2 10^3/uL (1.7-8.2); BASOPHILS % (AUTO) 1.2 % (0-2); EOSINOPHILS % (AUTO) 1.9 % (0-6); HEMATOCRIT 45.4 % (37.9-51.0); HEMOGLOBIN 15.4 g/dL (13.5-17.0); LYMPHOCYTES % (AUTO) 29.5 % (13-45); MEAN CORPUSCULAR HEMOGLOBIN 31.7 pg (27.0-33.4); MEAN CORPUSCULAR VOLUME 93 fl (80-97); MONOCYTES % (AUTO) 6.5 % (3-13); PLATELET COUNT 358 10^3/uL (150-450); RED BLOOD COUNT 4.87 10^6/uL (4.35-5.55); RED CELL DISTRIBUTION WIDTH 13.1 % (11.5-14.0); SEGMENTED NEUTROPHILS % (AUTO) 60.9 % (42-78); TOTAL CELLS COUNTED % (AUTO) 100 %; WHITE BLOOD COUNT 8.6 10^3/uL (4.0-10.5)
[2020-08-02 03:26] LABS: APPEARANCE,URINE CLEAR; BILIRUBIN,URINE NEGATIVE (NEGATIVE); COLOR,URINE COLORLESS; GLUCOSE, URINE NEGATIVE (NEGATIVE); KETONES,URINE NEGATIVE (NEGATIVE); LEUKOCYTE ESTERASE,URINE NEGATIVE (NEGATIVE); NITRITE,URINE NEGATIVE (NEGATIVE); PROTEIN,URINE NEGATIVE (NEGATIVE); URINE SPECIFIC GRAVITY 1.002; UROBILINOGEN,URINE NEGATIVE mg/dL (<2.0)
[2020-08-02 03:39] LABS: ALCOHOL 266 mg/dL (NONE DETECTED); ALKALINE PHOSPHATASE 93 U/L (38-126); ANION GAP 7 (5-19); ASPARTATE AMINO TRANSFERASE 40 U/L (17-59); BILIRUBIN,DIRECT 0.1 mg/dL (0.0-0.4); BILIRUBIN,TOTAL 0.4 mg/dL (0.2-1.3); BLOOD UREA NITROGEN 9 mg/dL (7-20); CARBON DIOXIDE 30 mmol/L (22-30); CHLORIDE 108 mmol/L (98-107); GLUCOSE 89 mg/dL (75-110); POTASSIUM 3.8 mmol/L (3.6-5.0)
[2020-08-02 03:40] LABS: ACETAMINOPHEN < 10 ug/mL (10-30); SALICYLATE < 1.0 mg/dL (2.0-20.0)
[2020-08-02 03:50] LABS: URINE AMPHETAMINES SCREEN NEGATIVE; URINE BARBITURATES SCREEN NEGATIVE; URINE BENZODIAZEPINES SCREEN NEGATIVE; URINE COCAINE SCREEN NEGATIVE; URINE MARIJUANA (THC) SCREEN NEGATIVE; URINE METHADONE SCREEN NEGATIVE; URINE PHENCYCLIDINE SCREEN NEGATIVE
--- NOTE | 2020-08-02 06:30 | ER Document Report ---
ED General - General TRAVEL OUTSIDE OF THE [place] IN LAST 30 DAYS: No <ALTON MCCRARY IV - Last Filed: 08/02/20 06:30> <BOB LOPEZ - Last Filed: 08/02/20 09:54> - General Chief Complaint: ETOH Abuse Stated Complaint: ALCOHOL WITHDRAWL Time Seen by Provider: 08/02/20 04:20 - HPI Context: Chief Complaint: [Alcohol abuse, requesting detox] [60-year-old male with history of alcohol abuse presents requesting detox. ] History obtained from [patient] Symptoms began:[Chronic] Onset: [Chronic] Timing: [Chronic] Intensity: [Severe] Location: [Generalized] Radiation: [Denies] [The pain does not migrate to a new location.] Aggravating factors: [none] Relieving factors: [none] [Denies] SOB [Denies] nausea [Denies] vomiting [Denies] sweats [Denies] fever [Denies] cough [Denies] calf or leg swelling or pain (ALTON MCCRARY IV) - Related Data Allergies/Adverse Reactions: No Known Allergies Allergy (Verified 08/02/20 02:32) Past Medical History - General Information source: Patient - Social History Smoking Status: Current Every Day Smoker Frequency of alcohol use: Heavy Drug Abuse: None Family History: Reviewed & Not Pertinent Patient has homicidal ideation: No - Past Medical History Cardiac Medical History: Reports: Hx Hypertension Endocrine Medical History: Reports: Hx Diabetes Mellitus Type 2 - "borderline" Renal/ Medical History: Denies: Hx Peritoneal Dialysis Past Surgical History: Reports: Hx Cardiac Surgery - CABG - Immunizations Immunizations up to date: Yes Hx Diphtheria, Pertussis, Tetanus Vaccination: Yes <ALTON MCCRARY IV - Last Filed: 08/02/20 06:30> Review of Systems <ALTON MCCRARY IV - Last Filed: 08/02/20 06:30> - Review of Systems Notes: Review of systems as below unless otherwise stated in HPI. CONSTITUTIONAL [No] fever, [No] chills. EYES [No] eye pain. ENT [No] URI symptoms, [No] sore throat, [No] ear pain. CARDIOVASCULAR [No] chest pain, [No] palpitations, [No] edema. RESPIRATORY [No] Cough, [No] SOB, [No] wheezing. GASTROINTESTINAL [No] abdominal pain, [No] nausea, [No] Diarrhea, [No] Vomiting, [No] constipation, [No] melena, [No] rectal bleeding. GENITOURINARY [No] dysuria, [No] urinary frequency, [No] hematuria, [No] urinary urgency MUSCULOSKELETAL [No] Back pain. SKIN [No] Rash. NEUROLOGIC [No] Headache, [No] recent seizures, [No] paralysis,[No] parathesias. ENDOCRINE [No] polyuria. HEMO/LYMPATIC [No] easy brusing PSYCHIATRIC [No] depression. (ALTON MCCRARY IV) Physical Exam <ALTON MCCRARY IV - Last Filed: 08/02/20 06:30> - Vital signs Vitals: Temp Pulse Resp BP Pulse Ox 97.5 F 70 20 175/91 H 97 08/02/20 00:45 08/02/20 00:45 08/02/20 00:45 08/02/20 00:45 08/02/20 00:45 - Notes Notes: CONSTITUTIONAL [Vital signs reviewed, Patient appears comfortable, patient appears intoxicated and smells of byproducts of EtOH metabolism, HEAD [Atraumatic, Normocephalic.] EYES [Eyes are normal to inspection, No discharge from eyes, Extraocular muscles intact, Sclera are normal, Conjunctiva are normal.] ENT [External ears normal to inspection, Nose examination normal, Mouth normal to inspection.] NECK [Normal ROM, No jugular venous distention, No meningeal signs, ] RESPIRATORY CHEST [Chest is nontender, Breath sounds normal, No respiratory distress.] CARDIOVASCULAR [RRR, No murmurs, Normal S1 S2, No rub, No gallop.] ABDOMEN [Abdomen is nontender, No pulsatile masses, No other masses, Bowel sounds normal, No distension, No peritoneal signs, No hernias.] BACK [There is no CVA Tenderness, There is no tenderness to palpation, Normal inspection.] UPPER EXTREMITY [Inspection normal, No cyanosis, No clubbing, No edema, LOWER EXTREMITY [Inspection normal, No cyanosis, No clubbing, No edema, No calf tenderness, NEURO [No focal motor deficits, No focal sensory deficits, Speech slightly slurred] SKIN [Skin is warm, Skin is dry, Skin is normal color.] LYMPHATIC [No adenopathy in neck.] PSYCHIATRIC [Normal affect. ] (ALTON MCCRARY IV) Course - Laboratory Results Result Diagrams: 08/02/20 03:05 08/02/20 03:05 Critical Laboratory Results Reviewed: Yes Attending or Supervising Physician who Reviewed Labs: ALTON MCCRARY IV - Alcohol level elevated - Radiology Results Critical Radiology Results Reviewed: No Critical Results Attending or Supervising Physician who Reviewed Radiology: ALTON MCCRARY IV <ALTON MCCRARY IV - Last Filed: 08/02/20 06:30> - Laboratory Results Result Diagrams: 08/02/20 03:05 08/02/20 03:05 <BOB LOPEZ - Last Filed: 08/02/20 09:54> - Re-evaluation Re-evalutation: 08/02/20 09:51 This gentleman was seen initially overnight by Dr. Mccrary for alcohol detox. He was acutely intoxicated when he came in. Nursing staff is asked me to reevaluate him at this time. Patient is clinically sober although he still has a blood alcohol of 195. He is able to ambulate without assistance. He complains of mild tremor but this is not impressive on exam. His vital signs are stable. I reviewed his chart and briefly reexamined him at the bedside. Patient has a desire to go to [facility] and we are going to release him at this time and have security walk him over. (BOB LOPEZ) - Vital Signs Vital signs: Temp Pulse Resp BP Pulse Ox 97.5 F 63 16 143/87 H 95 08/02/20 00:45 08/02/20 02:06 08/02/20 08:01 08/02/20 08:01 08/02/20 08:01 - Laboratory Results Laboratory Results Interpreted: 08/02/20 03:05 Sodium 145.1 H Chloride 108 H Salicylates < 1.0 L Acetaminophen < 10 L - EKG Interpretation by Me Additional EKG results interpreted by me: 08/02/20 06:29 EKG obtained on 08/02/2020 was interpreted by this MD. Findings: Sinus bradycardia, rate 55, normal axis, MD interval appears to be within normal limits, P waves preceding QRS complexes, right bundle branch block is present, QTC is 421, there are no obvious patterns of ST segment elevation, depression or reciprocal changes seen to suggest acute myocardial ischemia or infarction. There is no prior EKG available for comparison. Impression sinus bradycardia with nonspecific ST segments, 08/02/20 06:30 (ALTON MCCRARY IV) Discharge <ALTON MCCRARY IV - Last Filed: 08/02/20 06:30> <BOB LOPEZ - Last Filed: 08/02/20 09:54> - Discharge Clinical Impression: Alcohol use disorder Acute alcohol intoxication Qualifiers: Complication of substance-induced condition: uncomplicated Qualified Code(s): F10.920 - Alcohol use, unspecified with intoxication, uncomplicated Condition: Stable Disposition: OTHER Additional Instructions: Go directly to [facility] at this time. Return here as needed for new or worsening symptoms
[2020-08-02 10:26] VITALS: BP 147/100
--- NOTE | 2020-08-02 17:18 | EKG REPORT ---
SEVERITY:- ABNORMAL ECG - SINUS RHYTHM PROBABLE LEFT ATRIAL ABNORMALITY INCOMPLETE RIGHT BUNDLE BRANCH BLOCK : Confirmed by: Isabel Menjivar MD 02-Aug-2020 17:18:17
== END 2020-08-02 10:25 | disposition other institution (70) ==
LOC: ER 00:12
DX: F10.120 Alcohol abuse with intoxication, uncomplicated (principal); R00.1 Bradycardia, unspecified; F17.200 Nicotine dependence, unspecified, uncomplicated; I10 Essential (primary) hypertension
CPT/HCPCS: 36415; 80053; 80307; 81001; 85025; 93005; 93010; 99284